=== PATIENT | male | born 1950 | race Caucasian/White ===

== ENCOUNTER 2017-06-05 21:51 | Inpatient (IN) | payer MEDICARE, OTHER ==
[~2017-06-05] VITALS: Ht 180.3 cm; Wt 92.6 kg
[2017-06-06 01:21] LABS: BASOPHIL 0.2 % (0-2); EOSINOPHIL 0.2 % (0-7); HCT 40.8 % (42.0-52.0); HGB 13.5 g/dl (13.2-18.0); LYMPHOCYTE 7.3 % (15-48); MCH 30.5 pg (25.0-31.0); MCHC 33.1 g/dL (32.0-36.0); MCV 92.1 fL (78.0-100.0); MPV 11.5 fL (6.0-9.5); NEUTROPHIL 82.3 % (41-80); PLT 141 K/uL (150-400); RBC 4.43 M/uL (4.70-6.00); RDW 14.6 % (11.5-14.0); WBC 11.3 K/uL (4.0-10.5)
[2017-06-06 01:39] LABS: ALBUMIN 3.9 g/dL (3.4-4.8); BILIRUBIN - TOTAL 1.7 mg/dL (0.1-1.0); CREATININE 0.8 mg/dL (0.7-1.2); GLOBULIN (CALCULATION) 2.7 g/dL (2.2-4.2); POTASSIUM 4.7 mmol/L (3.5-5.1); TOTAL PROTEIN 6.6 g/dL (6.4-8.3)
[2017-06-07 06:30] LABS: CREATININE 0.9 mg/dL (0.7-1.2); MAGNESIUM 1.72 mg/dL (1.40-2.10); PHOSPHORUS 2.7 mg/dL (2.7-4.5); POTASSIUM 4.3 mmol/L (3.5-5.1)
[2017-06-07] MEDS ORDERED: LEVAQUIN750 MG PO (12:23)
[2017-06-07] MEDS ORDERED: ASPIRIN325 M1 PO (12:23)
[2017-06-07] MEDS ORDERED: COREG25 MG PO (12:24)
[2017-06-07] MEDS ORDERED: VITAMIN D50000 UNIT PO (12:24)
[2017-06-07] MEDS ORDERED: LASIX40 MG PO (12:24)
[2017-06-07] MEDS ORDERED: CETIRIZINE HCL10 MG PO (12:24)
[2017-06-07] MEDS ORDERED: MAG-OXIDE 400M400 MG PO (12:25)
[2017-06-07] MEDS ORDERED: LOVASTATIN20 MG PO (12:25)
[2017-06-07] MEDS ORDERED: NORCO 5-325 TA1 EACH PO (12:25)
[2017-06-07] MEDS ORDERED: VENTOLIN (2.5 MG/3 M NEB (12:26)
[2017-06-07] MEDS ORDERED: VENTOLIN INHALER (12:26)
== END 2017-06-07 12:55 | disposition home or self-care (01) | DRG 194 ==
LOC: FTCU 21:51
PROVIDERS: Internal Medicine; ADMIT Emergency Medicine
DX: J18.9 Pneumonia, unspecified organism (principal); I50.22 Chronic systolic (congestive) heart failure; C34.31 Malignant neoplasm of lower lobe, right bronchus or lung; I10 Essential (primary) hypertension; I25.10 Atherosclerotic heart disease of native coronary artery without angina pectoris; Z95.1 Presence of aortocoronary bypass graft; Z95.810 Presence of automatic (implantable) cardiac defibrillator; F17.220 Nicotine dependence, chewing tobacco, uncomplicated; Z79.82 Long term (current) use of aspirin; R09.02 Hypoxemia; G89.29 Other chronic pain; J44.9 Chronic obstructive pulmonary disease, unspecified
CPT/HCPCS: 36415; 71020; 80048; 80053; 83605; 83735; 83880; 84100; 84145; 85025; 85651; 86140; 94640; 97116; 97162; C9113; J0456; J1170; J1644; J1940; J2930